=== PATIENT | female | born 1960 | race Caucasian/White ===

== ENCOUNTER → 2017-03-17 | Outpatient (CLI) | payer BC | LOC: MC.RAD 14:02 | DX: Z12.31 Encounter for screening mammogram for malignant neoplasm of breast (principal) ==

== ENCOUNTER → 2018-07-20 | Outpatient (CLI) | payer BC | LOC: MC.RAD 14:44 | DX: Z12.31 Encounter for screening mammogram for malignant neoplasm of breast (principal) ==

== ENCOUNTER → 2019-07-26 | Outpatient (CLI) | payer BC | LOC: MC.RAD 13:28 | DX: Z12.31 Encounter for screening mammogram for malignant neoplasm of breast (principal) ==

== ENCOUNTER → 2020-07-27 | Outpatient (CLI) | payer OTHER | LOC: MC.RAD 08:22 | DX: Z12.31 Encounter for screening mammogram for malignant neoplasm of breast (principal) ==

== ENCOUNTER → 2021-07-30 | Outpatient (CLI) | payer BC | LOC: MC.RAD 13:03 | DX: Z12.31 Encounter for screening mammogram for malignant neoplasm of breast (principal) ==